=== PATIENT | female | born 1985 | race Two or more races ===

== ENCOUNTER 2024-03-22 21:56 | Inpatient (IN) | payer MEDICAID, SELFPAY ==
[2024-03-22] VITALS (18 sets, daily range): BP systolic 104–138; BP diastolic 63–82; PULSE 95–119; RESP 16; TEMP 36.4; O2SAT 91–99; BMI 35.4
--- NOTE | 2024-03-22 22:39 | XR_ITS ---
Examination: age Limited Limited transabdominal sonographic images pelvis Exam date and time: March 22, 2024 1139 hrs. Indications: Labor induction, unknown presentation. Findings: Viable intrauterine gestation cephalic presentation Estimated weight 3427 g Estimated age 38 weeks 3 days Cardiac motion 158 BPM Impression: Viable intrauterine gestation cephalic presentation
--- NOTE | 2024-03-22 23:30 | ESHP_ITS ---
Documentation for date of: 03/23/24 OB Labor/Induct. HPI History of Present Illness Chief complaint: 38 y/o 39w 2d presented for IOL due to GDM oral, obesity and AMA : 5 Para: 2 Term pregnancies: 2 pregnancies: 0 Living children: 2 History of Abortions: Spontaneous and Elective: 2 History of Vaginal deliveries: 2 History of sections: No History of : No STANLEY: 03/28/24 Gestational Age (weeks): 39 Gestational Age (days): 2 Indication for induction: maternal discomfort History of present illness: 38 y/o 39w 2d presented for IOL due to GDM oral, obesity and AMA. GBS is neg. Pt has been having biweekly NST/BPP which have been all normal. Pt also has been followed by [facility] Dr. Blake who recommended induction at 39w to 39w 6d. Pt has a hx of nvdx2. and 2 SAB. EFW is about 3500g History of Present Dating criteria: based on LMP only Adequate Care: Yes Ultrasounds: normal 1st trimester US and normal mid trimester US Obstetrical complications: gestational diabetes and other (Obesity, AMA) Labs Maternal Blood Type: O Pos Labs: Negative: Hepatitis B, HIV, Chlamydia, Gonorrhea and Group Beta Strep Review of Systems Review of Systems Systems Reviewed: All systems reviewed, normal except as documented Past Medical History Surgical History SURGICAL: Negative Section Meds Home Medications and Allergies Home Medications ?Medication ?Instructions ?Recorded ?Confirmed ?Type vit no.95-ferrous 1 tab PO QDAY 08/28/17 08/28/17 History fumarate 28 mg-folic acid 800 mcg tablet () Allergies Allergy/AdvReac Type Severity Reaction Status Date / Time No Known Allergies Allergy Verified 10/22/23 23:17 OB Exam Physical Exam Vital signs: Temp Pulse Resp BP Pulse Ox 98.5 F 81 18 126/78 98 03/23/24 07:23 03/23/24 08:27 03/23/24 07:23 03/23/24 08:27 03/23/24 01:25 Constitutional Constitutional: no acute distress Routine HEENT Exam Head: Present normocephalic and atraumatic Eye: Present EOMI, PERRL and normal accommodation ENT: Present mucous membranes moist Routine Neck Exam Neck: Present full ROM Routine Cardiovascular Exam Cardiovascular: Present RRR Routine Abdominal Exam Abdominal: Present soft and normoactive bowel sounds Routine Exam External: Present normal urethra appearance; Absent lesions Detailed Labor and Delivery Exam Dilation (cm): 1 Effacement (%): 60 Cervix position: posterior station: -3 Consistency: soft Presentation: Vertex Membranes: intact Baseline heart rate: 130 monitor accelerations: 15x15 monitor decelerations: None 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) Routine Extremities Exam Extremities: Present full ROM Routine Back/Spine/Pelvis Exam Back/Spine: Present full ROM Routine Skin Exam Skin: Present intact, dry and warm Routine Neurological Exam Neurological: Present alert, oriented X3 and CN II-XII intact Routine Psychiatric Exam Psychiatric: Present normal affect and normal thought process OB Results Labs 03/22/24 23:28 Labs: Short CBC 03/22/24 Range/Units 23:28 WBC 9.3 (3.6-11.0) Thou/mm3 Hgb 11.8 L (12.0-16.0) g/dL Hct 33.9 L (36.0-46.0) % Plt Count 185 D (140-440) Thou/mm3 OB Assessment & Plan Assessment and Plan (1) Encounter for induction of labor: Status: Acute (2) with 39 completed weeks gestation: Status: Acute (3) Gestational diabetes mellitus (GDM): Status: Acute (4) AMA (advanced maternal age) primigravida 35+: Status: Acute Additional Plan Induction method: per misoprostol protocol Plan: induction, anticipate NVD and consult MD prn Additional Plan Comment: Routine admit orders BS check Q4hr Ok to eat GDM diet early in labor Intermittent monitor OK early in the induction Consult anesthesia for an epidural (3) Gestational diabetes mellitus (GDM) Qualifiers: Gestational diabetes mellitus control: oral hypoglycemic-controlled T rimester: third trimester Qualified Code(s): O24.415 - Gestational diabetes mellitus in , controlled by oral hypoglycemic drugs (4) AMA (advanced maternal age) primigravida 35+ Qualifiers: Trimester: third trimester Qualified Code(s): O09.513 - Supervision of elderly primigravida, third trimester
[2024-03-22] MEDS: RINGERS LACTATED 1000 ML 1,000 ML 125 ML IV (23:32)
[2024-03-22 23:40] LABS: Syphilis Nonreactive (Nonreactive)
[2024-03-22 23:50] LABS: Basophils % (Auto) 0 % (0-2.5); Eosinophils # (Auto) 0.1 Thou/mm3 (0.0-0.5); Eosinophils % (Auto) 1 % (0-10); Hematocrit 33.9 % (36.0-46.0); Hemoglobin 11.8 g/dL (12.0-16.0); Immature Granulocytes % (Auto) 0 % (0-0); Immature Granulocytes Auto 0.04 Thou/mm3 (0.00-0.00); Lymphocytes # (Auto) 1.9 Thou/mm3 (1.0-4.8); Lymphocytes % (Auto) 20 % (10-50); Mean Corpuscular HGB Conc 34.8 g/dl (31.0-37.0); Mean Corpuscular Hemoglobin 32.2 pg (25.0-35.0); Mean Corpuscular Volume 93 fL (80-100); Monocytes # (Auto) 0.9 Thou/mm3 (0.0-0.8); Monocytes % (Auto) 10 % (0-12); Neutrophils # (Auto) 6.3 Thou/mm3 (1.8-7.7); Neutrophils % (Auto) 68 % (37-80); Nucleated Red Blood Cell % 0 /100 WBC (0); Platelet Count 185 Thou/mm3 (140-440); RDW Standard Deviation 51.6 fL (36.4-46.3); Red Blood Count 3.66 Miln/mm3 (4.00-5.20); White Blood Count 9.3 Thou/mm3 (3.6-11.0)
[2024-03-23] VITALS (127 sets, daily range): BP systolic 101–170; BP diastolic 55–97; PULSE 70–145; RESP 16–20; TEMP 36.6–37.3; O2SAT 92–100; BMI 35.4
[2024-03-23] MEDS: MISOPROSTOL 50 mCg TABLET PO ×2 (00:44→04:43)
--- NOTE | 2024-03-23 08:51 | PD.LDPN ---
Documentation for date of: 03/23/24 OB Labor Progress Note Pain Control Pain control: tolerating well Pelvic Exam Dilation (cm): 1 Effacement (%): 60 station: -3 Contractions Monitor mode: External Contraction frequency: 2-10 minutes Contraction phase: Contraction Contraction intensity: Mild Status status: Category l Assessment and Plan Assessment: induction ongoing Plan OB labor note: continuous present management Comments: PT has had 2 doses of misoprostol, will continue to all 4 doses, not cervical change Anticipate
[2024-03-23] MEDS: fentaNYL CIT INJ 50 mCg/ML AMP 2ML 100 MCG IV (12:02)
[2024-03-23] MEDS: RINGERS LACTATED 1000 ML 1,000 ML 125 ML IV ×2 (12:19→13:21)
--- NOTE | 2024-03-23 14:15 | PD.LDPN ---
Documentation for date of: 03/23/24 OB Labor Progress Note Pain Control Pain control: epidural Pelvic Exam Dilation (cm): 5 Effacement (%): 80 station: -1 Amniotic membrane status: Ruptured (AROM- bloody clear) Contractions Monitor mode: External Contraction frequency: 2-4 Contraction duration: 40-60 Contraction phase: Contraction Contraction intensity: Mild Status status: Category l Assessment and Plan Assessment: induction ongoing Plan OB labor note: begin Pitocin augmentation Comments: AROM performed clear fluids Pt is comfortable with epidural Start pitocin per protocol Anticipate
[2024-03-23] MEDS: MINERAL OIL 30 ML UDC TOP (15:50)
[2024-03-23] MEDS: LIDOCAINE HCL 1% 20 ML VIAL INFL (16:25)
[2024-03-23] MEDS: OXYTOCIN in NS 20 units 20 UNIT/1,000 ML BAG 125 UNIT IV (16:34)
[2024-03-23] MEDS: BENZO/LANO/ALOE (Dermoplast) 60 GM CAN 1 SPRAY TOP (16:42)
[2024-03-23] MEDS: IBUPROFEN TAB 400 MG TABLET 800 MG PO (16:42)
--- NOTE | 2024-03-23 16:44 | PD.LDDELS ---
Data ([place]) Data Hx Section: No : 5 Para: 2 Term: 2 : 0 : 2 Delivery Data ([place]) Labor Data ROM Date: 03/23/24 ROM Time: 14:09 Rupture Type: AROM Amniotic Fluid: Clear Delivery Data Labor Onset Stage 1 Date: 03/23/24 Labor Onset Stage 1 Time: 14:09 Labor Onset Stage 2 Date: 03/23/24 Labor Onset Stage 2 Time: 15:15 Delivery Date: 03/23/24 Delivery Time: 16:26 Gestational age (weeks): 39 Gestational age (days): 2 Placenta Delivery Date: 03/23/24 Placenta Delivery Time: 16:35 Delivered by: Yvette Johnson Delivery nurse: Lyn Singh Other staff at delivery: Baby Care/Senior Restaurant Manager Other staff at delivery: Nursery Nurse Other staff at delivery: 2nd Nurse Other staff at delivery: MD Chavez Omid Other staff at delivery: Beth Davies Other staff at delivery: Marry garcia Delivery Method Delivery: Vaginal Delivery Type: Spontaneous Anesthesia Type Primary Anesthesia: Epidural Secondary Anesthesia: Local Placenta Placenta Delivery: Spontaneous Episiotomy Episiotomy: Right Mediolateral EBL Estimated blood loss (ml): 150 Umbilical Cord Nuchal Cord: x2 Prentice Data ([facility]blanc) Prentice Data Gender: Male Weight Grams: 3250 1 Minute Total: 8 5 Minute Total: 9 Additional Comments Additional comments: Active management of third stage of labor done Placenta and membranes delivered intact Episiotomy was repaired with 2-0 Vicryl
[2024-03-23] MEDS: ACETAMINOPHEN 325 MG TABLET 650 MG PO (20:15)
[2024-03-23 23:03] LABS: Basophils % (Auto) 0 % (0-2.5); Eosinophils # (Auto) 0.1 Thou/mm3 (0.0-0.5); Eosinophils % (Auto) 0 % (0-10); Hematocrit 33.3 % (36.0-46.0); Hemoglobin 11.5 g/dL (12.0-16.0); Immature Granulocytes % (Auto) 1 % (0-0); Immature Granulocytes Auto 0.09 Thou/mm3 (0.00-0.00); Lymphocytes # (Auto) 2.2 Thou/mm3 (1.0-4.8); Lymphocytes % (Auto) 13 % (10-50); Mean Corpuscular HGB Conc 34.5 g/dl (31.0-37.0); Mean Corpuscular Hemoglobin 32.2 pg (25.0-35.0); Mean Corpuscular Volume 93 fL (80-100); Monocytes # (Auto) 1.9 Thou/mm3 (0.0-0.8); Monocytes % (Auto) 11 % (0-12); Neutrophils # (Auto) 13.2 Thou/mm3 (1.8-7.7); Neutrophils % (Auto) 76 % (37-80); Nucleated Red Blood Cell % 0 /100 WBC (0); Platelet Count 265 Thou/mm3 (140-440); RDW Standard Deviation 52.4 fL (36.4-46.3); Red Blood Count 3.57 Miln/mm3 (4.00-5.20); White Blood Count 17.4 Thou/mm3 (3.6-11.0)
[2024-03-24 04:02] VITALS: BP 110/71; PULSE 78; RESP 17; TEMP 36.7; O2SAT 96
[2024-03-24] MEDS: IBUPROFEN TAB 400 MG TABLET 800 MG PO ×2 (04:52→16:53)
--- NOTE | 2024-03-24 07:34 | ESDS_ITS ---
DS: Providers Provider Date of admission: 03/22/24 21:56 Primary care physician: Physician No Primary/Family Admitting Provider: Daron Bhatti MD Attending Provider on Admission: Yvette Johnson MD Consults: 03/23/24 16:43 Referral Routine Comment: Attending Provider on DC: Ruth Ann Agosto CNM Discharging Provider: Ruth Ann Agosto CNM DS: Diagnosis Discharge Diagnosis (1) Normal spontaneous vaginal delivery: Status: Acute (2) Encounter for care of lactating mother: Status: Acute (3) AMA (advanced maternal age) primigravida 35+: Status: Acute (4) Gestational diabetes mellitus (GDM): Status: Acute (5) with 39 completed weeks gestation: Status: Acute (6) Encounter for induction of labor: Status: Acute Problem List Completed Was Problem List Reviewed/Reconciled?: Yes Summary/Hosp Course Brief History: 38 y/o 39w 2d presented for IOL due to GDM oral, obesity and AMA. GBS is neg. Pt has been having biweekly NST/BPP which have been all normal. Pt also has been followed by [facility] Dr. Blake who recommended induction at 39w to 39w 6d. Pt has a hx of nvdx2. and 2 SAB. EFW is about 3500g 03/23/24: viable male delivered by Dr. Johnson 03/24/24: day 1. Patient is stable and afebrile. Doing well and ambulating with no problems voiding with no problems denies dizziness or shortness of breath. Uterus is nontender fundus firm minimal lochia. Discharge instructions given patient to go home at the 24-hour abilio this evening. Follow-up with Ruth Ann Agosto CNM in 3 weeks . Peripartum Data Delivery Method: Normal Vaginal Delivery Episiotomy Description: Midline Laceration Description: yes and see Delivery Summary complications: none [place] 1: Gender: Male Disposition of : home Status at Discharge Cognitive/behavioral status at discharge: Alert and oriented x3 Functional status at discharge: independent ambulation Overall status at discharge: patient is progressing back to baseline Time Spent with Patient Time attestation: Total time spent providing and/or coordinating discharge services: Time spent: Greater than 30 minutes Exam Vital Signs Temp Pulse Resp BP Pulse Ox O2 Del Method 98.1 F 78 17 110/71 96 Room Air 03/24/24 04:02 03/24/24 04:02 03/24/24 04:02 03/24/24 04:02 03/24/24 04:02 03/24/24 04:02 Constitutional Constitutional: no acute distress Routine HEENT Exam Head: Present normocephalic and atraumatic Eye: Present EOMI, PERRL and normal accommodation ENT: Present mucous membranes moist Routine Neck Exam Neck: Present supple, full ROM and trachea midline Routine Respiratory Exam Respiratory: Present chest non-tender, lungs clear, normal breath sounds and no resp distress Routine Cardiovascular Exam Cardiovascular: Present RRR Routine Abdominal Exam Abdominal: Present soft and normoactive bowel sounds; Absent tenderness or distended Comments: Uterus non-tender Fundus firm Routine Exam Patient deferred: external exam Routine Extremities Exam Extremities: Present full ROM, pulses intact and normal capillary refill; Absent calf tenderness or tenderness Routine Back/Spine/Pelvis Exam Back/Spine: Present full ROM Routine Skin Exam Skin: Present intact, dry and warm Routine Neurological Exam Neurological: Present alert, oriented X3 and CN II-XII intact Routine Psychiatric Exam Psychiatric: Present normal affect and normal thought process Discharge Plan Plan Patient Disposition: HOME (Self Care) Patient condition on transfer: Stable Prescriptions/Referrals Prescriptions/Med Rec: New ibuprofen 800 mg tablet 800 mg PO Q6H MDD 4 PRN (Reason: pain) Qty: 120 0RF docusate sodium [Colace] 100 mg capsule 100 mg PO BID Qty: 60 0RF lanolin 50 % ointment 1 applic topical TID PRN (Reason: skin irritation) Qty: 15 0RF Continued PNV cmb#95-ferrous fumarate-FA [] 28 mg iron- 800 mcg Tablet 1 tab PO QDAY Discontinued ibuprofen 600 mg tablet 600 mg PO Q8H PRN (Reason: fever or pain) Qty: 30 0RF Referrals: No Primary/Family,Physician [Primary Care Provider] - Patient/Caregiver Discharge Instructions Meds to Beds: No Discharge Activity: activity as tolerated Other Discharge Activity Instructions:: Follow-up with Ruth Ann Agosto CNM in 3 weeks Education Materials: After a Vaginal , : Caring for Yourself Print Language: Khmer Stand Alone Forms: Yari Award Info., Patient Portal Info Letter Discharge Order Discharge Orders: Discharge (Routine); Ordered 03/24/24 Ordered By: Ruth Ann Agosto Planned Discharge Date 03/24/24 (3) AMA (advanced maternal age) primigravida 35+ Qualifiers: Trimester: third trimester Qualified Code(s): O09.513 - Supervision of elderly primigravida, third trimester (4) Gestational diabetes mellitus (GDM) Qualifiers: Gestational diabetes mellitus control: oral hypoglycemic-controlled Trimeste r: third trimester Qualified Code(s): O24.415 - Gestational diabetes mellitus in , controlled by oral hypoglycemic drugs
[2024-03-24 07:59] VITALS: BP 115/80; PULSE 74; RESP 16; TEMP 36.3; O2SAT 98
[2024-03-24] MEDS: ACETAMINOPHEN 325 MG TABLET 650 MG PO (08:13)
--- NOTE | 2024-03-24 10:33 | PC.SS ---
SEWING ROOM SUPERVISOR conducted bedside contact with the patient to address nursing referral indicating patient possessed history of depression. SEWING ROOM SUPERVISOR introduced self, role and basis of contact. Present with patient at bedside was Zhen ZAVALA. Patient gave permission for the FOB to be present during discussion. Patient confirmed past history of depression. Per patient, presence of depression occurred a few years ago. Patient denies presence of depression at current time. Patient reports no impairment with daily functioning. Patient is employed timekeeper. Resides at home with FOB and three boys ages, 16, 14 and 13. Patient is receiving both SNAP and WIC. Patient is not receiving TANF. Patient denies history of alcohol/drug use. Patient denies CWS intervention. Patient denies episodes of domestic violence. Patient states consistency with OB appointments. Patient has access to appropriate supplies and equipment. Patient has access to car seat. FOB will provide transportation upon discharge. Patient describes possessing support system consisting of FOB and extended family. No further intervention required at this time, social work msw will be available to address any further concerns. SEWING ROOM SUPERVISOR updated bedside nurse.
[2024-03-24 11:30] VITALS: BP 117/68; PULSE 93; RESP 18; TEMP 36.8; O2SAT 98
[2024-03-24 16:00] VITALS: BP 116/80; PULSE 95; RESP 17; TEMP 37.1; O2SAT 97
== END 2024-03-24 18:09 | disposition home or self-care (01) | DRG 560 ==
LOC: S4SX 03-23 16:47 → S4NX 03-23 19:00
PROVIDERS: Nurse Practitioner Women's Health; Student in an Organized Health Care Education/Training Program; Admitting Provider Obstetrics & Gynecology; Visit Provider Obstetrics & Gynecology
DX: O24.425 Gestational diabetes mellitus in childbirth, controlled by oral hypoglycemic drugs (principal); O99.214 Obesity complicating childbirth; O69.81X0 Labor and delivery complicated by cord around neck, without compression, not applicable or unspecified; Z37.0 Single live birth; Z3A.39 39 weeks gestation of pregnancy
CPT/HCPCS: 36415; 59409; 76815; 85025; 86780; 86850; 86900; 86901; 94762; J2590; J2795; J3010; J3490; J7120; A9270

== ENCOUNTER 2025-04-01 13:40 | Outpatient (AMB) | payer MEDICAID, SELFPAY ==
[2025-04-01 13:54] VITALS: BP 126/78; PULSE 100; RESP 18; TEMP 36.6; O2SAT 98; BMI 32.9
--- NOTE | 2025-04-01 13:54 | AMB.OBINITIA ---
Vital Signs 04/01/25 13:54 Height 1.55 m Height Method Stated Weight 79.152 kg Weight Measurement Method Standing Scale BMI 32.9 BP 126/78 Blood Pressure Source Automatic Cuff Blood Pressure Location Left Upper Arm Position Sitting Respiration 18 Pulse 100 Pulse Source Monitor Temp 97.8 F Temp Source Oral Pulse Oximetry (%) 98 Oxygen Delivery Method Room Air Allergies/Home Meds Allergies & Medications Allergies No Known Allergies Allergy (Verified 04/01/25 13:55) Medication Reconciliation vit no.95-ferrous fumarate 28 mg-folic acid 800 mcg tablet () 1 tab PO QDAY 08/28/17 [History Confirmed 04/01/25] Intake Visit Data Collection New Patient or Established: Established Patient (seen at [facility] within 3 years) Reason for Visit:: TRANSFER INITIAL CARE Seen by Clinical Staff ONLY (RN/MA): No Quality Control Coordinator Required: No Do You Feel Safe at Home: Yes Authorities Contacted: N/A PCP or OBGYN visit in last 3 months: Yes Hx Now: Yes Are you currently on any form of Control: No Last menstrual period: 08/05/24 Pain Present Currently: No Pain Scale Used: [place]/Numerical Pain scale:: 0 Smoking Status Smoking Status: Never smoker Immunizations Flu Vaccine in the Last 12 Months: Yes Flu Vaccine Exclusion Criteria: Already Received Questionnaires Covid-19 Vaccine Questionnaire Has patient been vacinated for Covid-19 Have you been vacinated for Covid-19: Yes PHQ-9 PHQ-2 Over the last 2 weeks, how often have you been bothered by any of the following problems? 1. Little interest or pleasure in doing things: not at all 2. Feeling down, depressed, or hopeless: not at all Total score: 0 PHQ-9 3. Trouble falling or staying asleep, or sleeping too much: Not at all 4. Feeling tired or having little energy: Not at all 5. Poor appetite or overeating: Not at all 6. Feeling bad about yourself - or that you are a failure or have let yourself or your family down: Not at all 7. Trouble concentrating on things, such as reading the newspaper or watching television: Not at all 8. Moving or speaking so slowly that other people could have noticed? - Or the opposite - being so fidgety or restless that you have been moving around a lot more than usual: not at all 9. Thoughts that you would be better off or of hurting yourself in some way: Not at all Total score: 0 Source: Developed by Drs. Kadeem Buchanan, Noy Johnson, Rajeev Senior and colleagues, with an educational yazmin from [employer]. Depression screen completed yes Social History Living Situation History Marital Status: Lives With: Family Housing: House Tobacco History Smoking Status: Never smoker Second Hand Smoke Exposure: No Alcohol History Alcohol Intake: Former Alcohol Intake Frequency: holidays/special occasions only Domestic Abuse History Do You Feel Safe at Home: Yes History of Present Illness HPI Narrative 39-year-old 6 para 2 for OB transfer/OBI. Patient's last period was August 05, 2024. Estimated due date May 12, 2025. Patient's first visit at [facility] was in 8 weeks. First ultrasound October 09, 2024. Patient was 8 weeks 4 days. And the skin is estimated due date of May 12, 2024 so it supports LMP dates. Denies social habits. Denies surgery. Denies chronic illness. Patient has gestational diabetes this . So she is testing very sporadically her sugars. She had she had gestational diabetes her last pregnancies so she remembers diet to walk and be active. Reports good movement. Denies leaking or bleeding. Patient had an abnormal 2-hour GTT. Her RPR was negative. Platelets are normal. Hemoglobin was 14. Patient is O+, antibody screen negative, RPR nonreactive, rubella immune, hepatitis B negative, hep C negative, HIV negative, GC and Chlamydia were negative. She had negative drug screen. And her urine culture was negative. Her hematocrit 42. Her NIPT and carrier screen was negative. Spinal muscular atrophy and cystic fibrosis were also negative. Patient has had several ultrasounds at [facility] and shows normal growth EQUAL OPPORTUNITY SPECIALIST: Past Medical History Past Medical History: No Hx Neurological Disorders, No Hx Cardiac Disorders, No Hx Cancer, No Hx Blood Disorders, No Hx Anemia, No Hx Gastrointestinal Disorders, No Hx Renal Disease, No Hx Diabetes Mellitus Type 1 and No Hx Diabetes Mellitus Type 2 OB Initial Visit OB Flowsheet OB Flowsheet Initial Weight: Not Recorded Date <del>?</del> EGA Weight BP Alb Glu CTX Pres Fundal ht FHR Mov Dilation Station Effacement Hx Notes Visit Note 04/01/25 <del>?</del> 34w 1d 79.152 kg 126/78 absent cephalic 34 143 active 39-year-old 6 para 2 for OB transfer with records. She has been followed at [facility] since 8 weeks . She is 34 and 1 today. Patient is O+, antibody screen negative, RPR nonreactive, rubella immune, hepatitis B negative, hep C negative, HIV negative, GC and chlamydia were normal normal. And patient had a abnormal 2-hour GTT. She is testing her sugars at home sporadically and she is knowledgeable about diet. Schedule weekly NST BPP. Patient has will follow-up with maternal- medicine in 4 weeks. Discussed labor precautions. Kick count twice a day. Continue to test her sugars 4 times a day and we reviewed that. Continue GDM diet. Walk 4 times a day 40 minutes a day. Discussed labor precautions return in 2 weeks OB check Menstrual History Menstrual reliability: definite Flow: normal Menstrual regularity: regular Monthly: Yes Age at menarche: 14 Associated symptoms (LMP): Denies amenorrhea, nausea, vomiting, fatigue, breast tenderness, urinary frequency, irritability, bloating or other OB History : 6 Para: 3 Hx Total # of Abortions (Spontaneous & Elective): 2 # of Living Children: 3 Delivery History 1st : Child's name: ANTOINETTE date: 08/29/07 sex: male Gestational age at delivery (weeks): 40 Delivery type: vaginal Delivery complications: NONE History of depression before or after : No 2nd : Child's name: RENEE date: 09/24/10 sex: male Gestational age at delivery (weeks): 39 Delivery type: vaginal Delivery complications: NONE History of depression before or after : No 3rd : Child's name: HOLDEN date: 03/23/24 sex: male Gestational age at delivery (weeks): 39 Delivery type: vaginal Delivery complications: NONE History of depression before or after : No Infection History & Risk Evaluation History of STDs: none Genetic Screening & History Genetic Screening/Teratology Counseling - Includes patient, baby's father, or anyone in either family with: 1. Patient's age 35 years or older as of estimated date of delivery: Yes 2. Thalassemia (Ivorian, Romanian, Mediterranean, or Background); MCV less than 80: No 3. Neural Tube Defect (Meningomyelocele, Spina Bifida, or Anencephaly): No 4. Congenital Heart Defect: No 5. Down Syndrome: No 6. Dave-Sachs (Ashkenazi Pentecostalism, Cajun, [place]): No 7. Angelina Disease (Ashkenazi Pentecostalism): No 8. Familial Dysautonomia (Ashkenazi Pentecostalism): No 9. Sickle Cell Disease or Trait (): No 10. Hemophilia or other blood disorders: No 11. Muscular Dystrophy: No 12. Cystic Fibrosis: No 13. Kimberly's Chorea: No 14. Mental Retardation/Autism: No 15. Other inherited genetic or chromosomal disorder: No 16. Maternal Metabolic Disorder (EG,TYPE 1 Diabetes, PKU): No 17. Patient or baby's father had a child with defects not listed above: No 18. Recurrent loss or a stillbirth: No 19. Medications (including supplements, vitamins, herbs or otc drugs)/illicit/recreational drugs/alcohol since last menstrual period: No 20. Any other: No Infection History 1. Live with someone with TB or exposed to TB: No 2. Rash or viral illness since last menstrual period: No 3. Hepatitis B,C: No Other (see comments) Source: [employer] Review of Systems Review of Systems Systems Reviewed: All systems reviewed, normal except as documented Constitutional Constitutional: Denies fatigue Gastrointestinal Gastrointestinal: Denies bloating, Denies nausea and Denies vomiting Genitourinary Genitourinary: Denies amenorrhea and Denies urinary frequency Psychiatric Psychiatric: Denies irritability Endocrine Endocrine: Denies fatigue Exam General Limitations: no limitations General Appearance: alert, in no apparent distress, comfortable, cooperative, healthy appearing, well developed and well groomed Head Head exam: atraumatic, normocephalic and normal inspection ENT ENT exam: Present normal exam, normal oropharynx and mucous membranes moist Chest Chest inspection: Present normal inspection and symmetric chest wall rise Resp Respiratory exam: Present normal lung sounds bilaterally Card Cardiovascular exam: Present regular rate, normal rhythm and normal heart sounds Abdominal Abdominal exam: Present soft and normal bowel sounds Psych Psychiatric exam: Present normal affect and normal mood Office Procedures OBC Clinic LOC & Office Proc's Nursing/Assessment Patient Status: Established Patient OB Clinic Nursing Assessment: Medication Reconciliation, Update PMH in EMR and Vital Signs OB Clinic Coordination of Care: AMA, Complex Care and Chronic Disease 1-5, Consent,records obtained, informed consent, Education Simp Pt/Fam, 1 Ins Authorization, Lab and Imaging orders, Results/Orders obtained and Staff clarify orders Special Needs: Heart tones Established Patient Charge Established Patient Point Assignment: 170 Established Patient Point Charge: EP Level 5 (160-above) Assessment & Plan Diagnosis / Problem List (1) Encounter for supervision of high risk in third trimester, antepartum: Status: Acute (2) Advanced maternal age (AMA) in : Status: Acute (3) Diet controlled gestational diabetes mellitus (GDM) in third trimester: Status: Acute
== END 2025-04-01 14:46 | disposition home or self-care (01) ==
LOC: HODSOBC 13:40
PROVIDERS: Supervising Provider Advanced Practice Midwife; Visit Provider Advanced Practice Midwife
DX: O09.523 Supervision of elderly multigravida, third trimester (principal); O09.893 Supervision of other high risk pregnancies, third trimester; O24.410 Gestational diabetes mellitus in pregnancy, diet controlled; Z3A.34 34 weeks gestation of pregnancy
CPT/HCPCS: 99215; G0463

== ENCOUNTER 2025-04-16 09:24 | Outpatient (AMB) | payer MEDICAID, SELFPAY ==
[2025-04-16 09:34] VITALS: BP 126/87; PULSE 105; RESP 18; TEMP 36.2; O2SAT 97; BMI 33.6
--- NOTE | 2025-04-16 09:34 | OBCLNT_ITS ---
Vital Signs 04/16/25 09:34 Height 1.55 m Height Method Stated Weight 80.739 kg Weight Measurement Method Standing Scale BMI 33.6 BP 126/87 H Blood Pressure Source Automatic Cuff Blood Pressure Location Left Upper Arm Position Sitting Respiration 18 Pulse 105 H Pulse Source Monitor Temp 97.2 F Temp Source Oral Pulse Oximetry (%) 97 Oxygen Delivery Method Room Air Allergies/Home Meds Allergies & Medications Allergies No Known Allergies Allergy (Verified 04/16/25 09:35) Medication Reconciliation vit no.95-ferrous fumarate 28 mg-folic acid 800 mcg tablet () 1 tab PO QDAY 08/28/17 [History Confirmed 04/16/25] Immunizations Immunizations Flu Vaccine in the Last 12 Months: Yes Flu Vaccine Exclusion Criteria: Already Received Care OB Visit Log OB Flowsheet Initial Weight: Not Recorded Date -?-?-?-?-?-?-?-?-?-?-?-?- EGA Weight BP Alb Glu CTX Pres Fundal ht FHR Mov Dilation Station Effacement Hx Notes Visit Note 04/01/25 -?-?-?-?-?-?-?-?-?-?-?-?- 34w 1d 79.152 kg 126/78 absent cephalic 34 143 active 39-year-old 6 para 2 for OB transfer with records. She has been followed at [facility] since 8 weeks . She is 36 and 1 today. Patient is O+, antibody screen negative, RPR nonreactive, rubella immune, hepatitis B negative, hep C negative, HIV negative, GC and chlamydia were normal normal. And patient had a abnormal 2-hour GTT. She is testing her sugars at home sporadically and she is knowledgeable about diet. Schedule weekly NST BPP. Patient has will follow-up with maternal- medicine in 4 weeks. Discussed labor precautions. Kick count twice a day. Continue to test her sugars 4 times a day and we reviewed that. Continue GDM diet. Walk 4 times a day 40 minutes a day. Discussed labor precautions return in 2 weeks OB check 04/16/25 -?-?-?-?-?-?-?-?-?-?-?-?- 36w 2d 80.739 kg 126/87 absent cephalic 36 145 active Reports good movement. Denies any signs or symptoms of preeclampsia. Reports compliance with GDM diet and testing. Also weekly NST BPP. Reports good movement. Denies leaking, bleeding, contractions. Patient is concerned about scheduling induction dates because the baby is measuring big I 24-hour urine protein, CMP and PT PTT today. Continue to monitor blood sugars. Continue GDM diet reviewed. Continue to follow-up with weekly NST BPP. Kick count twice a day. We discussed inductions and call for ultrasound from Dr. Blake next visit,GBS STANLEY Calculator Estimated Delivery Date Method Current WG Current Estimate 05/12/25 LMP (Certain) 36w 2d Other Estimates 05/17/25 Ultrasound #1 35w 4d 05/12/25 Ultrasound #2 36w 2d 05/12/25 Manual 36w 2d final stanley: 05/12 Notes Visit Date: 04/01/25 Last Updated by: Leni Durbin CNM 39 yo LMP: 08/05/24. EDC 05/12/25. O+,abs-, rpr;;nr, rub imm, hbsag-, hiv-, HC-, GC/CT-, UA-, abn 2 hr gtt, NIPT and carrier screen- GDM/diet sono 03/02/25: EFW 42%, 29w6, no previa Office Procedures OBC Clinic LOC & Office Proc's Nursing/Assessment Patient Status: Established Patient OB Clinic Nursing Assessment: Medication Reconciliation, Update PMH in EMR and Vital Signs OB Clinic Coordination of Care: Complex Care and Chronic Disease 1-5, Consent,records obtained, informed consent, Education Simp Pt/Fam, Lab and Imaging orders, Results/Orders obtained and Staff clarify orders Special Needs: Heart tones Miscellaneous Interventions: Culture Specimen Collection Established Patient Charge Established Patient Point Assignment: 150 Established Patient Point Charge: EP Level 4 (120-155) Assessment & Plan Diagnosis / Problem List (1) Diet controlled gestational diabetes mellitus (GDM) in third trimester: Status: Acute (2) Advanced maternal age (AMA) in : Status: Acute (3) Encounter for supervision of high risk in third trimester, antepartum: Status: Acute Plan PIH panel today. Discussed labor precautions. Kick count twice a day. Continue GDM diet glucose monitoring. Continue weekly NST BPP. Return in 2 weeks OB check. GBS today. Call for sono results from Dr. Blake Additional Plan Follow Up: 2 Weeks (obc)
== END 2025-04-16 09:52 | disposition home or self-care (01) ==
LOC: HODSOBC 09:24
PROVIDERS: Supervising Provider Advanced Practice Midwife; Visit Provider Advanced Practice Midwife
DX: O09.523 Supervision of elderly multigravida, third trimester (principal); O09.893 Supervision of other high risk pregnancies, third trimester; O24.410 Gestational diabetes mellitus in pregnancy, diet controlled; Z3A.36 36 weeks gestation of pregnancy
CPT/HCPCS: 99214; G0463

== ENCOUNTER 2025-04-24 20:00 | Observation (INO) | payer MEDICAID, SELFPAY ==
[2025-04-24] VITALS (22 sets, daily range): BP systolic 135–138; BP diastolic 88; PULSE 91–123; RESP 16–99; TEMP 36.6; O2SAT 98–99; BMI 34.4
[2025-04-24 21:11] LABS: Collection Type, Urine Clean Catch
[2025-04-24 21:15] LABS: ROM Swab Mixed By: ANGUM; Swb Mxed in Solvent 1 min? Yes
[2025-04-24 21:17] LABS: Bilirubin,Urine Negative (Negative); Blood,Urine Negative (Negative); Clarity,Urine Clear (Clear/Hazy); Color,Urine Lt-Yellow (Lt Yel-Yel); Glucose, Urine 3+ (Negative); Ketones,Urine 1+ (Negative); Leukocyte Esterase,Urine Negative (Negative); Nitrite,Urine Negative (Negative); PH,Urine 5.5 (5.0-7.0); Protein,Urine Trace (Neg - Trace); RBC,Urine 1 /hpf (0-3); Specific Gravity,Urine 1.026 (1.001-1.035); Squamous Epithelial Cell,Urine 2 /hpf (0-5); Urobilinogen,Urine Negative mg/dL (0.0-1.0); WBC,Urine < 1 /hpf (0-5)
[2025-04-24 21:23] LABS: Rupture of Fetal Membranes Negative (Negative)
== END 2025-04-24 22:05 | disposition home or self-care (01) ==
PROVIDERS: Admitting Provider Obstetrics & Gynecology; Visit Provider Obstetrics & Gynecology
DX: Z34.83 Encounter for supervision of other normal pregnancy, third trimester (principal); Z3A.37 37 weeks gestation of pregnancy
CPT/HCPCS: 59025; 59899; 81001; 84112

== ENCOUNTER 2025-04-27 15:10 | Outpatient (AMB) | payer MEDICAID, SELFPAY ==
[2025-04-27 15:29] VITALS: BP 118/79; PULSE 108; RESP 18; TEMP 36.8; O2SAT 98; BMI 33.8
--- NOTE | 2025-04-27 15:29 | OBCLNT_ITS ---
Vital Signs 04/27/25 15:29 Height 1.55 m Height Method Stated Weight 81.363 kg Weight Measurement Method Standing Scale BMI 33.8 BP 118/79 Blood Pressure Source Automatic Cuff Blood Pressure Location Left Upper Arm Position Sitting Respiration 18 Pulse 108 H Pulse Source Monitor Temp 98.2 F Temp Source Temporal Artery Scan Pulse Oximetry (%) 98 Oxygen Delivery Method Room Air Allergies/Home Meds Allergies & Medications Allergies No Known Allergies Allergy (Verified 04/27/25 15:30) Medication Reconciliation vit no.95-ferrous fumarate 28 mg-folic acid 800 mcg tablet () 1 tab PO QDAY 08/28/17 [History Confirmed 04/27/25] Immunizations Immunizations Flu Vaccine in the Last 12 Months: No Flu Vaccine Exclusion Criteria: No Exclusion Criteria Care OB Visit Log OB Flowsheet Initial Weight: Not Recorded Date -?-?-?-?-?-?-?-?-?-?-?-?- EGA Weight BP Alb Glu CTX Pres Fundal ht FHR Mov Dilation Station Effacement Hx Notes Visit Note 04/01/25 -?-?-?-?-?-?-?-?-?-?-?-?- 34w 1d 79.152 kg 126/78 absent cephalic 34 143 active 39-year-old 6 para 2 for OB transfer with records. She has been followed at [facility] since 8 weeks . She is 36 and 1 today. Patient is O+, antibody screen negative, RPR nonreactive, rubella immune, hepatitis B negative, hep C negative, HIV negative, GC and chlamydia were normal normal. And patient had a abnormal 2-hour GTT. She is testing her sugars at home sporadically and she is knowledgeable about diet. Schedule weekly NST BPP. Patient has will follow-up with maternal- medicine in 4 weeks. Discussed labor precautions. Kick count twice a day. Continue to test her sugars 4 times a day and we reviewed that. Continue GDM diet. Walk 4 times a day 40 minutes a day. Discussed labor precautions return in 2 weeks OB check 04/16/25 -?-?-?-?-?-?-?-?-?-?--?-?- 36w 2d 80.739 kg 126/87 3.5 g/dL (3.9-4.9) L 72 mg/dL (70-9 9) absent cephalic 36 145 active Reports good movement. Denies any signs or symptoms of preeclampsia. Reports compliance with GDM diet and testing. Also weekly NST BPP. Reports good movement. Denies leaking, bleeding, contractions. Patient is concerned about scheduling induction dates because the baby is measuring big I 24-hour urine protein, CMP and PT PTT today. Continue to monitor blood sugars. Continue GDM diet reviewed. Continue to follow-up with weekly NST BPP. Kick count twice a day. We discussed inductions and call for ultrasound from Dr. Blake next visit,GBS 04/27/25 -?-?-?-?-?-?-?-?-?-?-?-?- 37w 6d 81.363 kg 118/79 absent cephalic 37 145 active 1 -4 Patient reports good movement. Denies leaking or bleeding. Patient reports poor compliance with GDM diet. She states that her blood sugars will be higher depending on what she eats. She is not compliant with movement or activity as well. Induction of lab or scheduled for May 05, 2024. Discussed labor precautions with patient. Reviewed kick count twice a day. Comfort measures for backache and discomforts of . Reviewed again GDM diet and compliance with weekly NST BPP. I also reviewed the need for patient to be consistent about her blood sugars and bring her logs with her return in a week OB check Induction of labor scheduled for May 05, 2024. Discussed labor precautions with patient. Reviewed kick count twice a day. Comfort measures for backache and discomforts of . Reviewed again GDM diet and compliance with weekly NST BPP. I also reviewed the need for patient to be consistent about her blood sugars and bring her logs with her return in a week OB check. STANLEY Calculator Estimated Delivery Date Method Current WG Current Estimate 05/12/25 LMP (Certain) 37w 6d Other Estimates 05/17/25 Ultrasound #1 37w 1d 05/12/25 Ultrasound #2 37w 6d 05/12/25 Manual 37w 6d final stanley: 05/12 Notes Visit Date: 04/27/25 Last Updated by: Leni Durbin CNM patient desires depo at discharge. desire PP BTL, needs consent Visit Date: 04/01/25 Last Updated by: Leni Durbin CNM 39 yo LMP: 08/05/24. EDC 05/12/25. O+,abs-, rpr;;nr, rub imm, hbsag-, hiv-, HC-, GC/CT-, UA-, abn 2 hr gtt, NIPT and carrier screen- GDM/diet sono 03/02/25: EFW 42%, 29w6, no previa Office Procedures OBC Clinic LOC & Office Proc's Nursing/Assessment Patient Status: Established Patient OB Clinic Nursing Assessment: Medication Reconciliation, Update PMH in EMR and Vital Signs OB Clinic Coordination of Care: Complex Care and Chronic Disease 1-5, Education Complex Pt/Fam, Consent,records obtained, informed consent, Lab and Imaging orders, Results/Orders obtained and Staff clarify orders Special Needs: Heart tones Established Patient Charge Established Patient Point Assignment: 140 Established Patient Point Charge: EP Level 4 (120-155) Assessment & Plan Diagnosis / Problem List (1) Diet controlled gestational diabetes mellitus (GDM) in third trimester: Status: Acute (2) Advanced maternal age (AMA) in : Status: Acute (3) Encounter for supervision of high risk in third trimester, antepartum: Status: Acute Plan Continue weekly NST and BPP. Kick count twice a day. Reviewed GDM diet again with patient. Discussed labor precautions and danger signs symptoms. Continue to monitor blood sugars 4 times a day as directed. Patient to bring logs with her. Walk 40 minutes a day and 10 times after each meal. Induction is scheduled for May 05, 2025. Return in a week OB check Additional Plan Follow Up: 1 Week (obc)
== END 2025-04-27 15:45 | disposition home or self-care (01) ==
LOC: HODSOBC 15:10
PROVIDERS: Supervising Provider Advanced Practice Midwife; Visit Provider Advanced Practice Midwife
DX: O09.893 Supervision of other high risk pregnancies, third trimester (principal); O24.410 Gestational diabetes mellitus in pregnancy, diet controlled; O09.523 Supervision of elderly multigravida, third trimester; M54.9 Dorsalgia, unspecified; O99.891 Other specified diseases and conditions complicating pregnancy; Z3A.37 37 weeks gestation of pregnancy; Z91.119 Patient's noncompliance with dietary regimen due to unspecified reason
CPT/HCPCS: 99214; G0463